=== PATIENT | male | born 1975 | race Caucasian/White ===

== ENCOUNTER 2017-08-22 09:37 | Emergency (ER) | payer OTHER ==
[~2017-08-22] VITALS: Ht 182.9 cm; Wt 96.0 kg
[~2017-08-22 09:37] MED LIST: ADDE30TA PO; AMBI10TA PO; BUPR-175 PO; LISI-363 PO; SERT50 PO; XANA2TAB2 PO
[2017-08-22 09:39] VITALS: BP 185/92; PULSE 106; RESP 17; TEMP 98.7; O2SAT 100
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
[2017-08-22 11:44] LABS: AUTOMATED NEUTROPHIL # 5.9 TH/MM3 (1.8-7.7); BASOPHIL # 0.1 TH/MM3 (0-0.2); EOSINOPHIL # 0.1 TH/MM3 (0-0.4); EOSINOPHIL % 1.2 % (0.0-4.0); HEMATOCRIT 40.2 % (39.0-51.0); HEMOGLOBIN 13.6 GM/DL (13.0-17.0); LYMPH % 18.5 % (9.0-44.0); LYMPHOCYTE # 1.5 TH/MM3 (1.0-4.8); MEAN CORPUSCULAR HGB CONC 33.8 % (32.0-36.0); MEAN PLATELET VOLUME 7.6 FL (7.0-11.0); MONO % 7.2 % (0.0-8.0); MONOCYTE # 0.6 TH/MM3 (0-0.9); NEUT % 72.1 % (16.0-70.0); PLATELET COUNT 372 TH/MM3 (150-450); RED BLOOD COUNT 4.68 MIL/MM3 (4.50-5.90); RED CELL DISTRIBUTION WIDTH 14.4 % (11.6-17.2); WHITE BLOOD COUNT 8.2 TH/MM3 (4.0-11.0)
[2017-08-22 11:53] LABS: PROTHROMBIN TIME - PATIENT 10.5 SEC (9.8-11.6)
[2017-08-22 12:50] LABS: ALBUMIN 4.8 GM/DL (3.4-5.0); AST (GOT) 44 U/L (15-37); BLOOD UREA NITROGEN 16 MG/DL (7-18); CALCIUM 9.8 MG/DL (8.5-10.1); CHLORIDE 103 MEQ/L (98-107); CREATININE 0.88 MG/DL (0.60-1.30); GLOMERULAR FILTRATION RATE 96 ML/MIN (>89); GLUCOSE,RANDOM 82 MG/DL (74-106); SODIUM (NA) 139 MEQ/L (136-145)
[2017-08-22 12:51] LABS: ALT (GPT) 39 U/L (12-78)
[2017-08-22 12:53] LABS: ALKALINE PHOSPHATASE 60 U/L (45-117); TOTAL BILIRUBIN ADULT 0.5 MG/DL (0.2-1.0); TOTAL PROTEIN 8.2 GM/DL (6.4-8.2)
[2017-08-22] MEDS ORDERED: KETOROLAC TROMETHAMINE 30 MG/ML (IVP) VIAL IV PUSH ONE (13:45)
[2017-08-22] MEDS ORDERED: IOHEXOL 350 MG/ML 10 ML VIAL (for RAD DIAG) IVCONTRAST ONE (14:15)
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
[2017-08-22 15:14] VITALS: BP 130/80; PULSE 74; RESP 15; O2SAT 95
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
[2017-08-22] MEDS ORDERED: MEDR4PAK PO (19:21)
[2017-08-22] MEDS ORDERED: ZANTTAB PO (19:21)
--- NOTE | 2017-08-22 19:53 | PD ---
Physical Exam Narrative GENERAL: SKIN: Warm and dry. HEAD: Atraumatic. Normocephalic. EYES: Pupils equal and round. No scleral icterus. No injection or drainage. ENT: No nasal bleeding or discharge. Mucous membranes pink and moist. NECK: Trachea midline. No JVD. CARDIOVASCULAR: Regular rate and rhythm. RESPIRATORY: No accessory muscle use. Clear to auscultation. Breath sounds equal bilaterally. GASTROINTESTINAL: Abdomen soft, non-tender, nondistended. Hepatic and splenic margins not palpable. MUSCULOSKELETAL: Extremities without clubbing, cyanosis, or edema. No obvious deformities. NEUROLOGICAL: Awake and alert. No obvious cranial nerve deficits. Motor grossly within normal limits. Five out of 5 muscle strength in the arms and legs..... Except for right upper extremity bicep 2 out of 5, triceps 3 out of 5 , wrist flexors 3 out of 5. Normal speech. PSYCHIATRIC: Appropriate mood and affect; insight and judgment normal. Data Data Last Documented VS Vital Signs Date Time Temp Pulse Resp B/P (MAP) Pulse Ox O2 Delivery O2 Flow Rate FiO2 08/22/17 15:14 74 15 130/80 (97) 95 Room Air 08/22/17 09:39 98.7 Orders Orders Complete Blood Count With Diff (08/22/17 10:03) Comprehensive Metabolic Panel (08/22/17 10:03) Prothrombin Time / Inr (Pt) (08/22/17 10:03) Act Partial Throm Time (Ptt) (08/22/17 10:03) Lipase (08/22/17 10:03) Ct Brain W/O Iv Contrast(Rout) (08/22/17 10:03) Ct Abd/Pel W Iv Contrast(Rout) (08/22/17 10:03) Iv Access Insert/Monitor (08/22/17 10:03) Ct Thorax/ Chest W Iv Contrast (08/22/17 10:03) Elbow, Complete (4 Vws) (08/22/17 10:03) Shoulder, Limited(2vws) (08/22/17 10:03) Mri C Spine W/O Contrast (08/22/17 10:03) Mri L Spine W/O Contrast (08/22/17 10:03) Mri Brain W/O Contrast (08/22/17 10:03) Knee, Ltd (1 Or 2vws) (08/22/17 10:22) Ketorolac Inj (Toradol Inj) (08/22/17 13:45) Iohexol 350 Inj (Omnipaque 350 Inj) (08/22/17 14:15) Ed Discharge Order (08/22/17 19:31) Labs Laboratory Tests Test 08/22/17 11:15 White Blood Count 8.2 TH/MM3 Red Blood Count 4.68 MIL/MM3 Hemoglobin 13.6 GM/DL Hematocrit 40.2 % Mean Corpuscular Volume 86.0 FL Mean Corpuscular Hemoglobin 29.0 PG Mean Corpuscular Hemoglobin Concent 33.8 % Red Cell Distribution Width 14.4 % Platelet Count 372 TH/MM3 Mean Platelet Volume 7.6 FL Neutrophils (%) (Auto) 72.1 % Lymphocytes (%) (Auto) 18.5 % Monocytes (%) (Auto) 7.2 % Eosinophils (%) (Auto) 1.2 % Basophils (%) (Auto) 1.0 % Neutrophils # (Auto) 5.9 TH/MM3 Lymphocytes # (Auto) 1.5 TH/MM3 Monocytes # (Auto) 0.6 TH/MM3 Eosinophils # (Auto) 0.1 TH/MM3 Basophils # (Auto) 0.1 TH/MM3 CBC Comment DIFF FINAL Differential Comment Prothrombin Time 10.5 SEC Prothromb Time International Ratio 1.0 RATIO Activated Partial Thromboplast Time 27.4 SEC Blood Urea Nitrogen 16 MG/DL Creatinine 0.88 MG/DL Random Glucose 82 MG/DL Total Protein 8.2 GM/DL Albumin 4.8 GM/DL Calcium Level 9.8 MG/DL Alkaline Phosphatase 60 U/L Aspartate Amino Transf (AST/SGOT) 44 U/L Alanine Aminotransferase (ALT/SGPT) 39 U/L Total Bilirubin 0.5 MG/DL Sodium Level 139 MEQ/L Potassium Level 3.8 MEQ/L Chloride Level 103 MEQ/L Carbon Dioxide Level 24.0 MEQ/L Anion Gap 12 MEQ/L Estimat Glomerular Filtration Rate 96 ML/MIN Lipase 109 U/L [facility] Medical Record Reviewed: Yes Supervised Visit with FILIBERTO: No Narrative Course Dr. Mackey evaluated patient and spoke with the patient physically at bedside please see his note for details of the discussion that he had with the patient Impression: 1. Cervical spondylosis and degenerative disc disease with cervical canal stenosis 2. Cervical spinal cord contusion 3. Findings suggestive of right C7 radiculopathy with some possible C8 nerve involvement but no definite C8 nerve compression on MRI. Dr. Angelo's recommendation was outpatient steroid pack and to follow-up with him in 1 week Diagnosis Primary Impression: Cervical spinal cord contusion Additional Impression: C7 radiculopathy right Patient Instructions: General Instructions Departure Forms: Tests/Procedures Additional Instruction: FOLLOW UP WITH DR ANGELO IN A WEEK DISCUSSED WITH HIM Scripts Ranitidine (Zantac 150 Maximum Strength) 150 Mg Tab 150 MG PO BID for Prevent Stress Ulcers, #30 TAB 0 Refills Prov: Roger Angelo MD 08/22/17 Methylprednisolone Dosepak (Medrol Dosepak) 4 Mg Dspk 4 MG PO DIRECTED, #1 DSPK 0 Refills Per Pharmacist direction Prov: Roger Angelo MD 08/22/17 Disposition: 01 DISCHARGE HOME Arvin Riojas MD August 22, 2017 19:53
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
== END 2017-08-22 19:55 | disposition home or self-care (01) ==
LOC: NEPD 09:37
DX: S14.109A Unspecified injury at unspecified level of cervical spinal cord, initial encounter (principal); M54.12 Radiculopathy, cervical region; M48.02 Spinal stenosis, cervical region; M25.521 Pain in right elbow; V59.40XA Driver of pick-up truck or van injured in collision with unspecified motor vehicles in traffic accident, initial encounter; Y92.488 Other paved roadways as the place of occurrence of the external cause
CPT/HCPCS: 70450; 70551; 71260; 72141; 72148; 73030; 73080; 73560; 74177; 80053; 83690; 85025; 85610; 85730; 96374; 99285; J1885; Q9967